=== PATIENT | male | born 1980 | race Caucasian/White ===

== ENCOUNTER → 2017-07-31 | Outpatient (CLI) | payer SELFPAY ==
[~2017-07-31] MED LIST: NO HOME MEDICATIONS
== END ==
LOC: WSOH 07:50
DX: Z02.4 Encounter for examination for driving license (principal)

== ENCOUNTER 2022-05-26 12:32 | Outpatient (RCR) | payer OTHER | END 2022-06-16 | disposition home or self-care (01) | LOC: WSPT | DX: M25.561 Pain in right knee (principal) ==

== ENCOUNTER 2022-06-30 09:45 | Outpatient (RCR) | payer OTHER | END 2022-07-16 | disposition home or self-care (01) | LOC: WSPT | DX: M25.561 Pain in right knee (principal) ==